=== PATIENT | female | born 1965 | race Caucasian/White ===

== ENCOUNTER → 2017-11-15 | Outpatient (CLI) | payer OTHER ==
[~2017-11-15] MED LIST: BCPILLS PO; DOXY1TAB6 PO; IBUP-1449 PO; VENL150C56 PO
--- NOTE | 2017-11-15 16:10 | DIAGNOSTIC IMAGING REPORT ---
MRI OF THE CERVICAL SPINE WITHOUT IV CONTRAST CLINICAL HISTORY: Cervical radiculopathy. Right upper extremity symptoms. COMPARISON STUDY: No priors. TECHNIQUE: MRI of the cervical spine is performed utilizing various T1 and T2-weighted sequences in the axial and sagittal planes. IV contrast was not administered for this examination. The sagittal STIR sequence is degraded by motion artifact. FINDINGS: Cervical spine: Vertebral body height and alignment are maintained throughout the cervical spine. There is straightening of cervical lordosis with mild reversal centered at C5. Anterior osteophytes are noted in the lower cervical region. The atlantodental articulation appears maintained. The spinous processes are intact. No destructive bony process is suggested. A tiny hemangioma is incidentally noted in the body of T2. Intervertebral discs: There is degenerative disc desiccation seen throughout the cervical spine. Zokn-cg-xiwxaagy loss of height is noted at C5-C6 and C6-C7. Spinal cord: The cervical spinal cord is normal in morphology and signal intensity. C2-C3: Unremarkable. C3-C4: Unremarkable. C4-C5: Unremarkable. C5-C6: A posterior disc osteophyte complex abuts the ventral cord. Facet arthropathy causes minimal left-sided neural foraminal stenosis. C6-C7: A posterior disc osteophyte complex abuts the ventral cord. Uncovertebral and facet arthropathy cause [id number] left neural foraminal stenosis. C7-T1: Unremarkable. Soft tissues: The prevertebral and paraspinous soft tissues are normal in appearance. An 8 mm nodule is noted in the right thyroid lobe. Brain parenchyma: Partially visualized brain parenchyma at the skull base is within normal limits. IMPRESSION: 1. Mild multilevel cervical spondylosis as above, greatest at C5-C6 and C6-C7. See discussion for detailed [id number]-mi-[id number] analysis. 2. The cervical spinal cord is normal in morphology and signal intensity. 3. An 8 mm nodule is noted in the right thyroid lobe. Consider follow-up with a dedicated thyroid ultrasound for further assessment. Dictated: 11/15/2017 3:23 PM Transcribed: 11/15/2017 4:09 PM [place] Electronically signed by: Quintin Schaeffer M.D. 11/15/2017 4:17 PM Dictated Date/Time: 11/15/2017 3:23 PM
== END | disposition home or self-care (01) ==
PROVIDERS: ATTEND Physician Assistant
DX: M54.12 Radiculopathy, cervical region (principal); E04.1 Nontoxic single thyroid nodule